=== PATIENT | female | born 1970 | race Caucasian/White ===

== ENCOUNTER → 2019-07-20 08:35 | Outpatient (BNVA) | payer OTHER, SELFPAY | PROVIDERS: Family Provider Nurse Practitioner; PCP Family Medicine; Visit Provider Family Medicine | DX: E06.3 Autoimmune thyroiditis (principal); M25.561 Pain in right knee; M25.562 Pain in left knee; G43.709 Chronic migraine without aura, not intractable, without status migrainosus; G89.29 Other chronic pain; Z13.6 Encounter for screening for cardiovascular disorders | CPT/HCPCS: 80053; 84439; 84443 ==

== ENCOUNTER → 2020-03-26 14:10 | Outpatient (BNVA) | payer OTHER, SELFPAY | PROVIDERS: Family Provider Nurse Practitioner; PCP Family Medicine; Visit Provider Obstetrics & Gynecology | DX: N81.4 Uterovaginal prolapse, unspecified (principal); Z12.4 Encounter for screening for malignant neoplasm of cervix | CPT/HCPCS: 88175 ==

== ENCOUNTER 2020-04-05 07:42 | Outpatient (CLI) | payer OTHER, SELFPAY ==
--- NOTE | 2020-04-05 07:47 | MM_ITS ---
WS: [id number] BILATERAL SCREENING DIGITAL MAMMOGRAM WITH CAD HISTORY: SCREENING COMPARISON: 02/02/2019 and 01/10/2018 Bilateral CC and MLO views submitted. Computer aided detection analyzed. Breast composition: The breasts are heterogeneously dense, which may obscure small masses. No suspici ous masses, microcalcifications or architectural distortion. Stable fibroglandular pattern MM/[place] [id number] IMPRESSION: BI-RADS: 2-Benign FOLLOW UP: 1 Year Follow-up
== END 2020-04-05 07:43 | disposition home or self-care (01) ==
LOC: RADSHAW 07:43
PROVIDERS: PCP Family Medicine; Visit Provider Obstetrics & Gynecology
DX: Z12.31 Encounter for screening mammogram for malignant neoplasm of breast (principal)
CPT/HCPCS: 77067

== ENCOUNTER → 2020-07-19 13:05 | Outpatient (BNVA) | payer OTHER, SELFPAY | PROVIDERS: PCP Family Medicine; Visit Provider Family Medicine | DX: L73.2 Hidradenitis suppurativa (principal); Z68.42 Body mass index [BMI] 45.0-49.9, adult | CPT/HCPCS: 80053; 83036 ==

== ENCOUNTER → 2020-08-16 13:14 | Outpatient (BNVA) | payer OTHER, SELFPAY | PROVIDERS: PCP Family Medicine; Visit Provider Family Medicine | DX: L73.2 Hidradenitis suppurativa (principal) | CPT/HCPCS: 80053 ==

== ENCOUNTER → 2020-10-24 08:30 | Outpatient (BNVA) | payer OTHER, SELFPAY | PROVIDERS: PCP Family Medicine; Visit Provider Obstetrics & Gynecology | DX: N81.4 Uterovaginal prolapse, unspecified (principal); N81.6 Rectocele; N81.89 Other female genital prolapse; Z20.822 Contact with and (suspected) exposure to COVID-19 | CPT/HCPCS: 87635 ==

== ENCOUNTER 2020-10-24 11:23 | Day surgery (SDC) | payer OTHER, SELFPAY ==
[2020-10-24 11:15] VITALS: BMI 46.7
[2020-10-24 11:34] LABS: Basophils % 0.4 %; Eosinophils # 0.1 10^3/uL (0.0-0.8); Eosinophils % 1.1 %; Hematocrit 42.9 % (37.0-47.0); Hemoglobin 13.6 g/dL (11.5-15.3); Lymphocytes # 1.8 10^3/uL (0.8-4.8); Lymphocytes % 23.7 %; Mean Corpuscular HGB Conc 31.7 g/dL (30.0-36.0); Mean Corpuscular Hemoglobin 26.7 pg (28.0-34.0); Mean Corpuscular Volume 84.1 fl (81-99); Mean Platelet Volume 11.1 fL (7.4-10.4); Monocytes # 0.4 10^3/uL (0.2-0.9); Monocytes % 5.9 %; Neutrophils # 5.14 10^3/uL (1.8-7.7); Neutrophils % 68.6 %; Nucleated Red Blood Cells % 0 %; Platelet Count 334 10^3/cmm (130-400); Red Cell Distribution Width 14.7 % (12.1-15.1); White Blood Count 7.5 10^3/uL (4.0-10.0)
[2020-10-24 12:07] LABS: Alanine Aminotransferase 19 U/L (0-33); Albumin Level 4.1 g/dL (3.5-5.2); Alkaline Phosphatase 106 IU/L (35-105); Anion Gap 11.9 (5-19); Aspartate Amino Transferase 22 U/L (0-32); Blood Urea Nitrogen 15 mg/dL (6-20); Calcium 8.8 mg/dL (8.5-10.5); Carbon Dioxide 26 mmol/L (22-29); Chloride 103 mmol/L (98-107); Globulin 3.8 g/dL (1.3-4.6); Glomerular Filtration Rate 130.6 mL/min (90-130); Glucose 98 mg/dL (65-115); Osmolality Calculated 285 mOsm/kg (285-295); Potassium 3.9 mmol/L (3.5-5.1); Sodium 137 mmol/L (136-145); Total Bilirubin 0.5 mg/dL (0.15-1.2); Total Protein 7.9 g/dL (6.6-8.7)
--- NOTE | 2020-10-24 16:51 | P.ANESASSM_ITS ---
Pre-Anesthetic Assessment Pre-Anesthetic Assessment: Height/Weight: Height 1.8 m Weight 151.953 kg Proposed Procedure: Operation Date: 10/29/20 10:15 Proposed Procedures p Laparoscopic Assist Vaginal Hysterectomy 24237 [id number] 78189 N81.4 N81.6(Not Applicable) - Toña Vitale MD s Laparoscopic Salpingo Oophorectomy(Not Applicable) - Toña Vitale MD s Posterior Repair perineorrhapy(Not Applicable) - Toña Vitale MD s Cystoscopy(Not Applicable) - Toña Vitale MD Was Beta Stephanie taken within 24 hours: N/A Was Clonidine taken within 24 hours: N/A Social: Social History: No alcohol and No tobacco Exam: Pre-Anes Outpt Exam: alert, oriented x 3, clear to auscultation bi laterally and regular rate & rhythm Airway: Submandibular: WNL Cervical ROM: WNL MP: 2 Dentition: Full GI: GI: GERD Metabolic: Metabolic: Morbid obesity and Thyroid Anesthetic Plan: ASA status: 3 Anesthesia: General Risk of > 500 ml blood loss (7ml/kg in children): No PFSH Anesthesia PFSH: Medical History Chronic migraine GERD (gastroesophageal reflux disease) Jean's disease History of nonmelanoma skin cancer Well woman exam with routine gynecological exam Surgical History H/O knee surgery History of cholecystectomy History of D&C History of endometrial ablation History of incision and drainage History of surgical removal of ganglion cyst Family History Mother Anesthesia complication Clotting disorder Hyperlipidemia Hypertension Pulmonary embolism Grandmother Stroke maternal Diabetes maternal Family/Other Clotting disorder maternal aunt and uncle Diabetes maternal aunt and uncle Thyroid condition paternal side of family Breast cancer, Onset Age: 56 maternal aunt Ovarian cancer maternal aunt, age onset late 40's Sister Diabetes Thyroid condition Denies family history of Colon cancer Heart disease Bleeding disorder Uterine cancer Social History Smoking and tobacco status: never smoked Second hand smoke exposure: No Alcohol intake: never Desire information about alcohol rehabilitation?: No Desire information about substance/drug rehabilitation?: No Data Anesthesia CBC & Chem 7: 10/24/20 11:23 10/24/20 11:23 Other Labs: Laboratory Results - last 48 hr 10/24/20 10/24/20 11:23 11:23 WBC 7.5 RBC 5.10 Hgb 13.6 Hct 42.9 MCV 84.1 MCH 26.7 L MCHC 31.7 RDW 14.7 Plt Count 334 MPV 11.1 H Neut % (Auto) 68.6 Lymph % (Auto) 23.7 Lucas % (Auto) 5.9 Eos % (Auto) 1.1 Baso % (Auto) 0.4 Neut # (Auto) 5.14 Lymph # (Auto) 1.8 Lucas # (Auto) 0.4 Eos # (Auto) 0.1 Baso # (Auto) 0.0 Nucleated RBC % (auto) 0 Nucleated RBCs # 0.0 Sodium 137 Potassium 3.9 Chloride 103 Carbon Dioxide 26 Anion Gap 11.9 BUN 15 Creatinine 0.5 GFR Calculation 130.6 H Glucose 98 Calculated Osmolality 285 Calcium 8.8 Total Bilirubin 0.5 AST 22 ALT 19 Alkaline Phosphatase 106 H Total Protein 7.9 Albumin 4.1 Globulin 3.8 Cardiac Studies: No Data to Display
== END 2020-10-24 13:00 | disposition home or self-care (01) ==
LOC: OR 02-10 12:03
PROVIDERS: PCP Family Medicine; Visit Provider Obstetrics & Gynecology
DX: N81.4 Uterovaginal prolapse, unspecified (principal); Z01.818 Encounter for other preprocedural examination
CPT/HCPCS: 80053; 85025; 87086

== ENCOUNTER → 2020-11-21 15:44 | Outpatient (BNVA) | payer OTHER, SELFPAY | PROVIDERS: PCP Family Medicine; Visit Provider Obstetrics & Gynecology | DX: N81.4 Uterovaginal prolapse, unspecified (principal) | CPT/HCPCS: 76830 ==

== ENCOUNTER → 2020-12-10 10:45 | Outpatient (BNVA) | payer OTHER, SELFPAY | PROVIDERS: PCP Family Medicine; Visit Provider Internal Medicine | DX: E06.3 Autoimmune thyroiditis (principal); E04.9 Nontoxic goiter, unspecified; E03.8 Other specified hypothyroidism; M79.10 Myalgia, unspecified site; Z79.84 Long term (current) use of oral hypoglycemic drugs | CPT/HCPCS: 99204 ==

== ENCOUNTER → 2020-12-16 10:20 | Outpatient (BNVA) | payer OTHER, SELFPAY | PROVIDERS: PCP Family Medicine; Visit Provider Obstetrics & Gynecology | DX: N81.4 Uterovaginal prolapse, unspecified (principal); R39.9 Unspecified symptoms and signs involving the genitourinary system | CPT/HCPCS: 81000; 87086 ==

== ENCOUNTER → 2021-01-01 16:54 | Outpatient (BNVA) | payer OTHER, SELFPAY | PROVIDERS: Visit Provider Obstetrics & Gynecology | DX: Z01.812 Encounter for preprocedural laboratory examination (principal); Z20.822 Contact with and (suspected) exposure to COVID-19 | CPT/HCPCS: 87635 ==

== ENCOUNTER 2021-01-07 14:30 | Observation (INO) | payer OTHER, SELFPAY ==
--- NOTE | 2021-01-01 12:31 | ANES.PREANE2 ---
Pre-Anesthetic Assessment Pre-Anesthetic Assessment: Height/Weight: Height 1.8 m Preop Diagnosis: prolapse Proposed Procedure: Operation Date: 01/07/21 10:50 Proposed Procedures p Laparoscopic Assist Vaginal Hysterectomy 24105 [id number] 19176 N81.4 N81.6(Not Applicable) - Toña Vitale MD s Salpingectomy(Bilateral) - Toña Vitale MD s Posterior Repair, Perinerorrhaphy(Not Applicable) - Toña Vitale MD s Cystoscopy(Not Applicable) - Toña Vitale MD Familial anesthetic complications: I tend to bite when I come out of it She bit the nurses when they tried to extubate her - reports no injury occured, so probable that she was simply biting the tube Social: Social History: No alcohol and No tobacco Exam: Pre-Anes Outpt Exam: alert, oriented x 3, clear to auscultation bilaterally and regular rate & rhythm Airway: MP: 3 Dentition: Other (missing) Pulmonary: Pulmonary: Asthma (exercise-induced asthma) Metabolic: Metabolic: DM (Pre-DM), Morbid obesity and Thyroid Anesthetic Plan: ASA status: 3 Anesthesia: General Risk of > 500 ml blood loss (7ml/kg in children): No PFSH Anesthesia PFSH: Medical History Chronic migraine Encounter for screening for cardiovascular disorders GERD (gastroesophageal reflux disease) Jean's disease History of nonmelanoma skin cancer 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 Ingrown toenail with infection Left arm numbness Left upper arm pain Morbid obesity with BMI of 45.0-49.9, adult Skin lesion of back Well woman exam with routine gynecological exam Surgical History H/O knee surgery History of cholecystectomy History of D&C History of endometrial ablation History of incision and drainage History of surgical removal of ganglion cyst Family History Mother Anesthesia complication Clotting disorder Hyperlipidemia Hypertension Pulmonary embolism Grandmother Stroke maternal Diabetes maternal Family/Other Clotting disorder maternal aunt and uncle Diabetes maternal aunt and uncle Thyroid condition paternal side of family Breast cancer, Onset Age: 56 maternal aunt Ovarian cancer maternal aunt, age onset late 40's Sister Diabetes Thyroid condition Denies family history of Colon cancer Heart disease Bleeding disorder Uterine cancer Data Anesthesia Cardiac Studies: No Data to Display
[2021-01-01 12:44] VITALS: BMI 46.7
[2021-01-07] VITALS (15 sets, daily range): BP systolic 123–163; BP diastolic 68–124; PULSE 80–103; RESP 14–21; TEMP 36.3–36.8; O2SAT 92–100
[2021-01-07] MEDS: scopolamine 1.5 Patch 1 PATCH TRANSDERMA (09:40)
[2021-01-07] MEDS: sodium chloride 0.9% 500 ML 999 ML IV (09:40)
[2021-01-07] MEDS: acetaminophen 1,000 MG/100 ML PIGGYBACK 400 MG IV (09:41)
[2021-01-07] MEDS: ketorolac 30 mg/mL INJ IVP ×3 (09:42→21:19)
[2021-01-07] MEDS: gabapentin 300 mg Capsule PO (09:42)
[2021-01-07] MEDS: phenazopyridine 100 mg Tablet 200 MG PO (09:42)
[2021-01-07] MEDS: CELEcoxib 200 mg Capsule 400 MG PO (09:42)
--- NOTE | 2021-01-07 10:11 | P.ANESUD_ITS ---
Pre-Anesthetic Update Pre-Anesthetic Assessment: Date of Surgery/Procedure: 01/07/21 Preop Malaika gnosis: uterine prolapse, rectocele, loose perineal body Proposed Procedure: Operation Date: 01/07/21 10:50 Proposed Procedures p Laparoscopic Assist Vaginal Hysterectomy 06352 [id number] 89595 N81.4 N81.6(Not Applicable) - Toña Vitale MD s Salpingectomy(Bilateral) - Toña Vitale MD s Posterior Repair, Perinerorrhaphy(Not Applicable) - Toña Vitale MD s Cystoscopy(Not Applicable) - Toña Vitale MD Any changes to Pre-Anesthetic Assessment?: No Last Intake: Intake Last Liquid Date 01/06/21 Last Liquid Time 22:00 Last Solid Date 01/06/21 Last Solid Time 15:00 Vitals: Temperature 98.3 F 01/07/21 09:14 Temperature Source Temporal Artery S can 01/07/21 09:14 Pulse Rate 81 01/07/21 09:14 Respiratory Rate 18 01/07/21 09:14 Blood Pressure 163/124 01/07/21 09:14 Blood Pressure Alva n 137 01/07/21 09:14 Pulse Oximetry 98 01/07/21 09:14 Oxygen Delivery Me thod 01/07/21 09:16 Exam: Pre-Anes Outpt Exam: alert, oriented x 3, clear to auscultation bilaterally and regular rate & rhythm Cardiac Studies: No Data to Display
[2021-01-07 10:43] LABS: Alanine Aminotransferase 20 U/L (0-33); Albumin Level 4.2 g/dL (3.5-5.2); Alkaline Phosphatase 100 IU/L (35-105); Anion Gap 16.1 (5-19); Aspartate Amino Transferase 19 U/L (0-32); Blood Urea Nitrogen 13 mg/dL (6-20); Calcium 8.7 mg/dL (8.5-10.5); Carbon Dioxide 20 mmol/L (22-29); Chloride 106 mmol/L (98-107); Globulin 3.3 g/dL (1.3-4.6); Glomerular Filtration Rate 130.6 mL/min (90-130); Glucose 98 mg/dL (65-115); Osmolality Calculated 286 mOsm/kg (285-295); Potassium 4.1 mmol/L (3.5-5.1); Sodium 138 mmol/L (136-145); Total Bilirubin 0.6 mg/dL (0.15-1.2); Total Protein 7.5 g/dL (6.6-8.7)
--- NOTE | 2021-01-07 10:59 | W.PM.OPSUD ---
Surgery/Procedure H&P Update DATE OF PROCEDURE: January 07, 2021 DATE H&P PERFORMED: 12/30/20 H&P UPDATE INFORMATION: I have reviewed H&P completed within last 30 days, I have examined patient prior to procedure and No changes to prior documentation CHANGES TO PREVIOUS DOCUMENTATION: I have seen and examined patient. There are not changes PREOP DIAGNOSIS: uterine prolapse, rectocele, loose perineal body PLANNED PROCEDURE: Operation Date: 01/07/21 10:50 Proposed Procedures p Laparoscopic Assist Vaginal Hysterectomy 18863 13768 97630 N81.4 N81.6(Not Applicable) - Toña Vitale MD s Salpingectomy(Bilateral) - Toña Vitale MD s Posterior Repair, Perinerorrhaphy(Not Applicable) - Toña Vitale MD s Cystoscopy(Not Applicable) - Toña Vitale MD Related Problem List Diagnoses (1) Morbid obesity with BMI of 45.0-49.9, adult: (2) Uterine prolapse: (3) Loss of perineal body, female: (4) Rectocele:
[2021-01-07] MEDS: vasopressin 20 unit/mL INJ (13:48)
--- NOTE | 2021-01-07 13:52 | SUR.OPER ---
Family Notified Of Patient's Status Via Phone.
--- NOTE | 2021-01-07 14:32 | P.OP_ITS ---
Operative Report Date of procedure: January 07, 2021 Pre-op Diagnosis: uterine prolapse, rectocele, loose perineal body Post-op diagnosis: same Post-op Findings: same Procedure Done: LAVH converted to TVH, BSO, posterior repair, perineorrhaphy, cystoscopy Specimens removed/disposition: uterus and bilateral fallopian tubes and ovaries to pathology Surgeon: Toña Vitale Anesthesia: General Estimated blood loss (mL): 100 IV fluids (mL): 800 Urine output (mL): 200 Complications: none Findings: The patient was not tolerating steep trenelenberg and in spite of having measures in place, was sliding on the table. The laparoscopy was abandoned due to not being able to position her adequately. Condition: stable Disposition: floor Procedure: The patient was taken to the operating room where general anesthesia was administered and found to be adequate. She was prepped and draped in the normal sterile fashion in the dorsal lithotomy position in [facility]. She had a pink, non-slip pad placed under her as well as a seatbelt across her chest. A Swartz catheter was placed. A weighted speculum was placed into the vagina and the anterior lip of the cervix was grasped with a single tooth tenaculum. The patient had a previous uterine ablation and the Zumi uterine manipulator could not be placed. A sponge stick was used, instead. The weighted speculum was removed. The gloves were changed and attention was turned to the abdomen. A 5 mm infraumbilical incision was made. Using a 5 mm port with the camera, the port was placed into the abdomen. The abdomen was insufflated. A left, low, lateral 5 mm port was placed under direct visualization from the camera. Anesthesia attempted to posision the patient in steep trendelenberg. She began sliding backward on the table. That was stopped. I was unable to see into the pelvis without trendelenberg. The trocars were removed and the abdomen desufflated. I proceeded with the vaginal portion of the procedure. The weighted speculum was placed into the vagina. The zumi manipulator was removed. The single tooth tenaculum was removed and replaced with the wil's tenaculum. 10 mL of dilute Pitressin was injected at the vesicovaginal junction. A circumferential incision was made at the vesicovaginal junction and the vaginal mucosa reflected cephalad. The posterior peritoneum was entered sharply with the Metzenbaum scissors and the long weighted speculum replaced. Using the Pipo clamps the uterosacral ligaments were clamped cut and suture- ligated. The anterior peritoneum was entered sharply with the metzenbaum scissors. Then sequentially the uterine arteries and cardinal ligaments were clamped cut and suture-ligated. A single-tooth tenaculum was used to deliver the uterus. The remaining segement of the utero-ovarian ligaments were clamped. Using a cuauhtemoc clamp, the Heany clamp was placed lateral to the first clamp and superior to the tube and ovary. The infundibulopelvic ligament was cut and suture-ligated bilaterally and the specimens removed. There was good hemostasis with only mild bleeding from the cuff. The peritoneum was closed with a pursestring using 2-0 Vicryl. The vaginal cuff was closed with 0 Vicryl in a running locked pattern incorporating the uterosacral ligaments into the lateral aspects of the vaginal cuff. Attention was turned to the posterior repair. The vaginal cuff was identified and an allis clamp was placed in the midline of the vaginal mucosa, approximately 2 cm posterior to the cuff. A second allis clamp was placed in the midline of the vaginal mucosa, approximately 3 cm from the introitus. An incision was made in the midline from clamp to clamp. The vaginal mucosa was clamped laterally and the rectocele dissected off of the rectovaginal fascia. The rectocele was packed away and the rectovaginal fascia brought together in the midline with figure of 8 interrupted sutures of O-Vicryl. The packing was removed and the excess vaginal tissue trimmed. The incision was repaired with 0-Vicryl in a running fashion. Attention was then turned to the perineorrhphy. Allis clamps were placed on the posterior fourchette. A 3 cm wedge of the fourchette was removed. This was r epaired in the usual fashion with O-vicryl. The Swartz catheter was removed and the cystoscope advanced into the bladder. The patient was given pyridium in preop and bilateral spill was noted. There were no injuries or deficits noted in the bladder. The cystoscope was removed and the Swartz was replaced. Vaginal packing was placed for good hemostasis. The patient tolerated the procedure well. Sponge lap and needle counts were correct x3. She was taken to the recovery room in stable condition.
--- NOTE | 2021-01-07 15:03 | ANE.PACU2 ---
Inpatient post-anesthesia follow up: Airway intact: Yes Vital signs: Temperature 97.6 F Pulse Rate 86 Respiratory Rate 18 Blood Pressure 134/84 Pulse Oximetry 95 Oxygen Delivery Me thod Room Air Oxygen Flow Rate 8 Fraction of Inspir ed Oxygen Hydration adequate: Yes Nausea and vomiting: No Pain level: 3 Mental status: Baseline
[2021-01-07] MEDS: HYDROmorphone 1 mg/mL INJ 1 mL 1.5 MG IVP ×2 (16:39→23:05)
[2021-01-07] MEDS: pantoprazole DR 40 mg Tablet PO (21:19)
[2021-01-07] MEDS: topiramate 100 mg Tablet PO (21:26)
[2021-01-07] MEDS: cetirizine 10 mg Tablet PO (21:26)
[2021-01-07] MEDS: lactated ringers 1,000 ML 125 ML IV (23:04)
[2021-01-08 01:31] VITALS: O2SAT 95
[2021-01-08] MEDS: ketorolac 30 mg/mL INJ IVP (02:57)
[2021-01-08 03:03] VITALS: BP 123/75; PULSE 92; RESP 16; TEMP 36.8; O2SAT 96
[2021-01-08 04:21] VITALS: BP 123/74; PULSE 70; RESP 16; TEMP 36.7; O2SAT 98
[2021-01-08] MEDS: HYDROcodone-acetaminophen 5-325 mg Tablet PO (04:29)
[2021-01-08] MEDS: levothyroxine 175 mcg Tablet PO (05:48)
[2021-01-08 05:53] LABS: Hematocrit 37.5 % (37.0-47.0); Hemoglobin 11.9 g/dL (11.5-15.3); Mean Corpuscular HGB Conc 31.7 g/dL (30.0-36.0); Mean Corpuscular Hemoglobin 27.5 pg (28.0-34.0); Mean Corpuscular Volume 86.6 fl (81-99); Mean Platelet Volume 11.5 fL (7.4-10.4); Platelet Count 281 10^3/cmm (130-400); Red Blood Count 4.33 10^6/uL (4.1-5.3); Red Cell Distribution Width 13.8 % (12.1-15.1); White Blood Count 15.2 10^3/uL (4.0-10.0)
[2021-01-08] MEDS: metformin XR 500 MG Tablet PO (08:47)
[2021-01-08] MEDS: docusate sodium 100 mg Capsule PO (08:48)
--- NOTE | 2021-01-08 09:53 | P.DS_ITS ---
Discharge Providers Date of Admission: 01/07/21 14:30 Date of Discharge: January 08, 2021 Attending Provider at Admission: Toña Vitale MD Attending Provider at Discharge: Toña Vitale MD Primary Care Provider: Rocael Valdez RN Diagnoses at Discharge Discharge Diagnosis (1) Morbid obesity with BMI of 45.0-49.9, adult: Status: Acute (2) Uterine prolapse: Status: Acute (3) Loss of perineal body, female: Status: Acute (4) Rectocele: Status: Acute Reason for Visit Reason for Visit: Uterine prolapse, Rectocele Hospital Course Hospital Course The patient was admitted for surgery. she did well postoperatively and was ready for discharge on day #1 Physical Exam Narrative: EXAM NARRATIVE: The patient is doing well this morning. she has had her packing and catheter removed. She is able to void without problems. She is ambulating and tolerating a regular diet. Her pain is well controlled on oral pain medication. Const: COMMON NORMALS: no acute distress, patient oriented x3, no limitations, alert and well nourished GENERAL APPEARANCE: cooperative, comfortable, well kempt and well developed ORIENTATION/CONSCIOUSNESS: Yes awake, Yes oriented to person, Yes oriented to place and Yes oriented to time Resp: COMMON NORMALS: normal respiratory effort EFFORT & INSPECTION: Yes able to speak in complete sentences GI: COMMON NORMALS: Soft to palpation and non-tender PALPATION: Yes Soft to palpation : COMMON NORMALS: Yes normal external appearance and Yes normal appearance of the vagina Extremity: COMMON NORMALS: no calf tenderness Neuro: COMMON NORMALS: patient oriented x3 SENSORIUM/ORIENTATION: Yes alert, Yes oriented to person, Yes oriented to place and Yes oriented to time Psych: APPEARANCE: Yes well kempt Urinary Catheter Management^: F: Cath Placed During This Visit: yes, but has since been removed by the nurse Reason for Continuing Indwelling Catheter: Required Immobilization for Trauma or Surgery or Anesthesia Urinary Catheter Date of Insertion: 01/07/21 Urinary Catheter Time of Insertion: 11:25 Date Urinary Catheter Removed: 01/08/21 Time Urinary Catheter Discontinued: 06:05 Discharge Data Data Completed and Pending: Pending at discharge Category Date Time Status ES surgery / GI i mages Routine Exams 01/07/21 10:50 Ordered Comprehensive Met abolic Panel ASHLEY FABIAN Lab 01/08/21 04:00 Ordered Retype for Patiet s ABO/Rh Routine Lab 01/07/21 11:15 Ordered Pathology: Surgic al [PTH] Routine Pth 01/07/21 14:41 Received Labs from last 24 hours 01/08/21 01/07/21 01/07/21 05:30 09:40 09:40 WBC 15.2 H RBC 4.33 Hgb 11.9 Hct 37.5 MCV 86.6 MCH 27.5 L MCHC 31.7 RDW 13.8 Plt Count 281 MPV 11.5 H Sodium 138 Potassium 4.1 Chloride 106 Carbon Dioxide 20 L Anion Gap 16.1 BUN 13 Creatinine 0.5 GFR Calculation 130.6 H Glucose 98 Calculated Osmolal ity 286 Calcium 8.7 Total Bilirubin 0.6 AST 19 ALT 20 Alkaline Phosphata se 100 Total Protein 7.5 Albumin 4.2 Globulin 3.3 Urine HCG, Qual Blood Type A Positive Rho(D) Type Positive Antibody Screen Negative 01/07/21 09:20 WBC RBC Hgb Hct MCV MCH MCHC RDW Plt Count MPV Sodium Potassium Chloride Carbon Dioxide Anion Gap BUN Creatinine GFR Calculation Glucose Calculated Osmolal ity Calcium Total Bilirubin AST ALT Alkaline Phosphata se Total Protein Albumin Globulin Urine HCG, Qual Cancelled Blood Type Rho(D) Type Antibody Screen Vitals: Last Vital Signs Temp 98.1 F 01/08/21 04:21 Pulse 70 01/08/21 04:21 Resp 16 01/08/21 04:21 BP 123/74 01/08/21 04:21 Pulse Ox 98 01/08/21 04:21 Discharge Plan Discharge Patient Disposition: Home Condition: Stable Prescriptions: New docusate sodium 100 mg Capsule 100 mg PO BID Qty: 60 RF: 0 ibuprofen 800 mg Tablet 800 mg PO Q8H Qty: 30 RF: 0 hydrocodone-acetaminophen 5-325 mg Tablet 1 tab PO Q4H PRN (Reason: Moderate To Severe Pain) Qty: 30 RF: 0 Continued omeprazole 20 mg capsule,delayed release(DR/EC) 20 mg PO DAILY RF: 0 Zyrtec 10 mg capsule 10 mg PO DAILY RF: 0 triamcinolone acetonide 0.1 % ointment 1 applic topical BID Qty: 80 RF: 1 clindamycin phosphate 1 % gel 1 applic topical BID PRN (Reason: rash) RF: 0 metformin 500 mg tablet extended release 24 hr 500 mg PO .DAILY WITH FOOD Qty: 90 RF: 1 topiramate [Topamax] 100 mg tablet 100 mg PO DAILY Qty: 90 RF: 3 levothyroxine [Synthroid] 200 mcg tablet 200 mcg PO .every other day Qty: 90 RF: 0 levothyroxine [Synthroid] 175 mcg tablet 175 mcg PO .every other day Qty: 90 RF: 0 Discharge Orders: Discharge Order (Routine); Ordered 01/08/21 Ordered By: Toña Vitale Patient Instructions: Opioid Safety Discharge Attestations Time Spent in Discharge Care*: less than 30 min Quality Metrics Clinical Quality Measures During this hospital stay, did patient experience: None Coding Level of Care Code Acute [facility] note Diagnoses Morbid obesity with BMI of 45.0-49.9, adult E66.01; Z68.42 Uterine prolapse N81.4 Loss of perineal body, female N81.89 Rectocele N81.6
[2021-01-08 10:52] VITALS: BP 147/78; PULSE 81; RESP 20; TEMP 36.8
== END 2021-01-08 11:00 | disposition home or self-care (01) ==
LOC: OBGYN 14:30
PROVIDERS: Admitting Provider Obstetrics & Gynecology; Visit Provider Obstetrics & Gynecology
PROC: (CPT 58700; 2021-01-07 10:40)
PROC: (CPT 57250; 2021-01-07 10:40)
PROC: 0TJB8ZZ Inspection of Bladder, Via Natural or Artificial Opening Endoscopic (ICD-10-PCS; CPT 52000; 2021-01-07 10:40)
PROC: 0UT9FZZ Resection of Uterus, Via Natural or Artificial Opening With Percutaneous Endoscopic Assistance (ICD-10-PCS; CPT 57250; 2021-01-07 10:40)
PROC: (CPT 57250; 2021-01-07 10:40)
DX: N81.4 Uterovaginal prolapse, unspecified (principal); N81.6 Rectocele; N81.89 Other female genital prolapse; E66.01 Morbid (severe) obesity due to excess calories; Z68.42 Body mass index [BMI] 45.0-49.9, adult; K21.9 Gastro-esophageal reflux disease without esophagitis; E06.3 Autoimmune thyroiditis
CPT/HCPCS: 57250; 58262; 36415; 80053; 81025; 85027; 86850; 86900; 88305; G0378; J1100; J1170; J1885; J2250; J2405; J2704; J2710; J3010; J3370; J3490; J7040

== ENCOUNTER → 2021-01-15 09:54 | Outpatient (BNVA) | payer OTHER, SELFPAY | PROVIDERS: Visit Provider Podiatrist Foot & Ankle Surgery | DX: M79.672 Pain in left foot (principal); M77.32 Calcaneal spur, left foot | CPT/HCPCS: 73630 ==

== ENCOUNTER 2021-01-15 11:12 | Outpatient (CLI) | payer OTHER, SELFPAY | END 2021-01-15 11:13 | disposition home or self-care (01) | LOC: SPT 11:13 | PROVIDERS: PCP Family Medicine; Visit Provider Podiatrist Foot & Ankle Surgery | DX: Z46.89 Encounter for fitting and adjustment of other specified devices (principal); L73.2 Hidradenitis suppurativa; E06.3 Autoimmune thyroiditis | CPT/HCPCS: 80053; 82306; 83036; 84439; 84443; 90686; L4397 ==

== ENCOUNTER 2021-01-17 10:24 | Outpatient (RCR) | payer OTHER, SELFPAY | END 2021-02-07 23:59 | disposition home or self-care (01) | LOC: SPT 10:24 | PROVIDERS: PCP Family Medicine; Referring Provider Family Medicine Adult Medicine; Visit Provider Family Medicine Adult Medicine | DX: M79.622 Pain in left upper arm (principal); R20.0 Anesthesia of skin | CPT/HCPCS: 97110; 97162 ==

== ENCOUNTER 2021-02-05 07:21 | Outpatient (CLI) | payer OTHER, SELFPAY ==
--- NOTE | 2021-02-05 07:15 | US_ITS ---
WS: [id number] ULTRASOUND THYROID TECHNIQUE: Ultrasound of the thyroid. CLINICAL INFORMATION: goiter changes COMPARISON: and October 11, 2014 FINDINGS: Thyroid: Enlarged Heterogeneous thyroid echotexture bilaterally. Right thyroid lobe: 5.4 cm x 2.2 cm x 1.9 cm Left thyroid lobe: 4.9 cm x 1.6 cm x 1.4 cm. Echogenic nodule left mid thyroid measuring 6.2 x 6.3 x 7.0 mm Isthmus: 0.2 mm. Cervical lymphadenopathy: None. US/US thyroid [id number] IMPRESSION: 1. Enlarged heterogeneous thyroid echotexture bilaterally. 2. Echogenic nodule left mid thyroid measuring 6.2 x 6.3 x 7.0 mm. This is sta ble compared to 2017 3. No right thyroid nodules.
== END 2021-02-05 07:22 | disposition home or self-care (01) ==
LOC: RAD 07:24
PROVIDERS: PCP Family Medicine; Visit Provider Internal Medicine
DX: E06.3 Autoimmune thyroiditis (principal); E04.1 Nontoxic single thyroid nodule
CPT/HCPCS: 76536

== ENCOUNTER 2021-02-08 06:00 | Outpatient (RCR) | payer OTHER, SELFPAY | END 2021-03-10 23:59 | disposition home or self-care (01) | LOC: SPT 06:00 | PROVIDERS: PCP Family Medicine; Referring Provider Family Medicine Adult Medicine; Visit Provider Family Medicine Adult Medicine | DX: M79.622 Pain in left upper arm (principal); R20.0 Anesthesia of skin | CPT/HCPCS: 97110 ==

== ENCOUNTER 2021-03-11 06:00 | Outpatient (RCR) | payer OTHER, SELFPAY | END 2021-04-07 23:59 | disposition home or self-care (01) | LOC: SPT 06:00 | PROVIDERS: PCP Family Medicine; Referring Provider Family Medicine Adult Medicine; Visit Provider Family Medicine Adult Medicine | DX: M79.622 Pain in left upper arm (principal); R20.0 Anesthesia of skin | CPT/HCPCS: 97110 ==

== ENCOUNTER 2021-09-18 08:11 | Outpatient (CLI) | payer OTHER, SELFPAY ==
[2021-09-18 09:44] LABS: Free T4 Free Thyroxine 0.78 ng/dL (0.82-1.77); Thyroid Stimulating Hormone 16.26 uIU/mL (0.27-4.20)
== END 2021-09-18 08:12 | disposition home or self-care (01) ==
LOC: LAB 08:13
PROVIDERS: PCP Family Medicine; Visit Provider Family Medicine
DX: E03.8 Other specified hypothyroidism (principal); E06.3 Autoimmune thyroiditis
CPT/HCPCS: 84439; 84443

== ENCOUNTER 2021-11-13 12:34 | Outpatient (CLI) | payer OTHER, SELFPAY ==
--- NOTE | 2021-11-13 13:03 | MM_ITS ---
WS: [id number] BILATERAL 3D TOMOSYNTHESIS DIGITAL DIAGNOSTIC MAMMOGRAPHY WITH CAD CLINICAL INFORMATION: N63.0 Unspecified lump in unspecified breast COMPARISON: 6 month follow-up. Outside bilateral ultrasound November 12, 2020, MRI breast report Septe mber 2020, and prior mammogram April 05, 2020. TECHNIQUE: Bilateral CC, MLO, and ML views. FINDINGS: The breasts are composed of heterogeneous fibroglandular density, which can limit the detection of sm all underlying mass lesions. Stable dense parenchymal tissue upper outer breasts bilaterally RIGHT gr eater than LEFT. No suspicious focal mass, asymmetry, calcifications, or architectural distortion. Ultrasound describe d below. ULTRASOUND BREAST BILATERAL TECHNIQUE: Ultrasound bilateral breast focused area of concern. CLINICAL INFORMATION: N63.0 Unspecified lump in unspecified breast FINDINGS: RIGHT BREAST: Incidental cyst is identified at the RIGHT breast 11:00 position with through transmiss ion. Simple cyst measures 6.1 x 7.7 x 4.5 mm appears similar to the prior outside examination. No oth er abnormalities identified in the RIGHT breast. No suspicious RIGHT axillary lymph nodes. LEFT BREAST: LEFT axilla was examined. Normal-appearing LEFT axillary lymph node with preserved fatty hilum has a benign appearance measuring 1.7 x 1.5 x 0.8 cm. No suspicious LEFT axillary lymph nodes. MM/[place] [id number] IMPRESSION: BI-RADS: 2-Benign FOLLOW UP: 1 Year Follow-up Recommend return to annual screening mammography.
== END 2021-11-13 12:35 | disposition home or self-care (01) ==
LOC: RAD 12:34
PROVIDERS: PCP Family Medicine; Visit Provider Obstetrics & Gynecology
DX: N63.0 Unspecified lump in unspecified breast (principal)
CPT/HCPCS: 76641; 77062

== ENCOUNTER → 2022-03-31 16:53 | Outpatient (BNVA) | payer OTHER, SELFPAY | PROVIDERS: PCP Family Medicine; Visit Provider Nurse Practitioner | DX: J02.9 Acute pharyngitis, unspecified (principal); J30.9 Allergic rhinitis, unspecified | CPT/HCPCS: 87071; 87880 ==

== ENCOUNTER 2023-04-02 13:42 | Outpatient (CLI) | payer OTHER, SELFPAY ==
--- NOTE | 2023-04-02 14:00 | MM_ITS ---
WS: [id number] BILATERAL 3D TOMOSYNTHESIS DIGITAL SCREENING MAMMOGRAPHY WITH CAD CLINICAL INFORMATION: screening HISTORY: Screening mammogram. No current complaints. COMPARISON: 2021 TECHNIQUE: Bilateral CC and MLO views. FINDINGS: The breasts are composed of heterogeneous fibroglandular density tissue, which can limit the detectio n of small underlying mass lesions. No suspicious mass, asymmetry, calcifications, or architectural d istortion. No evidence of malignancy. A few tiny incidental punctate calcifications. IMPRESSION: MM/[place] [id number] BI-RADS: 2-Benign FOLLOW UP: 1 Year Follow-up Recommend return to annual screening mammography.
== END 2023-04-02 13:43 | disposition home or self-care (01) ==
LOC: RAD 13:42
PROVIDERS: PCP Family Medicine; Visit Provider Family Medicine
DX: Z12.31 Encounter for screening mammogram for malignant neoplasm of breast (principal); R92.323 Mammographic fibroglandular density, bilateral breasts
CPT/HCPCS: 77063; 77067

== ENCOUNTER 2024-07-28 07:44 | Outpatient (CLI) | payer OTHER, SELFPAY ==
--- NOTE | 2024-07-28 08:00 | MM_ITS ---
WS: [id number] BILATERAL SCREENING DIGITAL TOMOSYNTHESIS MAMMOGRAM WITH CAD HISTORY: Z12.31 - Encounter for screening mammogram for malignant ... COMPARISON: 04/02/2023, 11/13/2021 Bilateral CC and MLO views with tomosynthesis and synthetic mammography submitted. Computer aided detection analyzed. Breast composition: The breasts are heterogeneously dense, which may obscure small masses. No suspicious masses, microcalcifications or architectural distortion. There are a few benign scattered calcifications in each breast. MM/MM scr tomosynthesis [id number] IMPRESSION: BI-RADS: 2 - Benign FOLLOW UP: 1 Year Follow-up
== END 2024-07-28 07:45 | disposition home or self-care (01) ==
LOC: RAD 07:45
PROVIDERS: PCP Nurse Practitioner; Visit Provider Nurse Practitioner
DX: Z12.31 Encounter for screening mammogram for malignant neoplasm of breast (principal)
CPT/HCPCS: 77063; 77067

== ENCOUNTER 2024-08-22 18:12 | Emergency (ER) | payer OTHER, SELFPAY ==
--- NOTE | 2024-08-22 18:17 | ECG_ITS ---
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 Measurements Intervals [place] Rate: 96 P: 50 ME: 159 QRS: 12 QRSD: 113 T: 49 QT: 358 QTc: 453 Interpretive Statements SINUS RHYTHM POSSIBLE LEFT ATRIAL ENLARGEMENT [-0.1mV P-WAVE IN V1/V2] INCOMPLETE RIGHT BUNDLE BRANCH BLOCK [90+ ms QRS DURATION, TERMINAL R IN V1/V2, 40+ ms S IN I/aVL/V4/V5/V6] No previous ECG available for comparison Electronically Signed On 08-22-2024 18:37:00 CDT by Nakul Lopez M.D. [email or web address]
[2024-08-22 18:18] VITALS: BP 136/90; PULSE 91; RESP 16; TEMP 36.8; O2SAT 96
--- OUTSIDE RECORDS SUMMARY | 2024-08-22 18:18 | XMS_ITS | Clinical Summary ---
Author Organization [facility] Address [address] [place] [address] Attn: [place] [address] Care Team Providers Care Jewel Bearing Driller Name Role Phone Juan Hunt NP Primary Care Provider Allergies Active Allergy Reactions Criticality Noted Date Comments Aspirin Rash Low 05/11/2016 Doxycycline Rash Low 05/11/2016 Penicillins Rash Low 05/11/2016 Medications levothyroxine 200 mcg tablet Take 1 Tablet (200 mcg) by mouth every other day. 45 Tablet 3 9 Active levothyroxine 175 mcg tablet Take 1 Tablet (175 mcg) by mouth every other day. 45 Tablet 3 9 Active omeprazole (PriLOSEC) 20 mg Capsule, Delayed Release(E.C.) Take 20 mg by mouth daily. 8 Active OTHER Provider please include Medication name, dose, route and frequency . 8 Active topiramate (TOPAMAX) 100 mg tablet Take 100 mg by mouth daily. 8 Active hyaluronate sodium (HYALURONIC ACID, SODIUM, ORAL) Take 100 mg by mouth daily. 8 Active OTHER Calcium with magnesium daily . 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 Primary hypothyroidism 05/11/2016 Family History Medical History Relation Name Comments Ovarian Cancer Maternal Aunt 1 Breast Cancer Maternal Aunt 2 Cancer Maternal Grandmother Diabetes Maternal Grandmother Other Maternal Grandmother Thyroid Disease Maternal Grandmother Hypertension Mother Colon Cancer Neg Hx Relation Name Status Comments Maternal Aunt 1 Alive Maternal Aunt 2 Maternal Grandmother Mother Social History Tobacco Use Types Packs/Day Years Used Date Smoking Tobacco: Never Smokeless Tobacco: Never Alcohol Use Standard Drinks/Week Comments No 0 (1 standard drink = 0.6 oz pur e alcohol) Comments Unknown Sex and Gender Information Value Date Recorded Sex Assigned at Female 06/25/2023 11:12 AM CDT Legal Sex Female 2:54 AM RUBBER CURER Gender Identity Female 06/25/2023 11:12 AM CDT Sexual Orientation Straight 06/25/2023 11 :12 AM CDT Last Filed Vital Signs Vital Sign Reading Time Taken Comments Blood Pressure 128/80 01/16/2019 2:36 PM RUBBER CURER Pulse 76 01/16/2019 1:11 PM RUBBER CURER Temperature - - Respiratory Rate - - Oxygen Saturation - - Inhaled Oxygen Concentration - - Weight 146.7 kg (323 lb 6.4 oz) 01/16/2019 2:36 PM RUBBER CURER Height 180.3 cm (5' 11 ) 01/16/2019 2:36 PM RUBBER CURER Body Mass Index 45.11 01/16/2019 2:36 PM RUBBER CURER Plan of Treatment Health Maintenance Due Date Last Done Comments DTAP/TDAP/TD VACCINES (1 - Tdap) 1989 HEPATITIS B VACCINES (1 of 3 - 19+ 3-dose series) 10/09 COLORECTAL SCREENING 10/22/2015 Colorectal Cancer Screening 10/22/2015 FIT-DNA Q 3 years 10/22/2015 FIT/FOBT Q 1 year 10/22/2015 Flex Sig/CT Colonography Q 5 years 10/22/2015 BREAST CANCER SCREENING 08/29/2016 08/30/2015 ZOSTER VACCINE (1 of 2) 2020 PAP SMEAR 01/14/2021 01/14/2018 CERVICAL CANCER SCREENING 01/14/2023 HPV/Cotest (21-29) 01/14/2023 01/14/2018 HPV/Cotest (30-65) 01/14/2023 01/14/2018 INFLUENZA VACCINE (#1) 2024 12/23/2022 Procedures Procedure Name Priority Date/Time Associated Diagnosis Comments CERV/VAG CYTO AGE BASED SCREEN PAP Routine 01/14/2018 4:06 PM RUBBER CURER MAMMO SCREEN BILAT W OR WO CAD 08/30/2015 12:00 AM CDT from Last 3 Months or Most Recently Relevant to Health Maintenance Results * CERV/VAG CYTO AGE BASED SCREEN PAP (01/14/2018 4:06 PM RUBBER CURER) COMMENT (PAP): SEE COMMENT 8 1:52 PM RUBBER CURER [facility] Comment: This order for age-based cervical cancer and STI screening follows ACOG guidelines(PB 168, 140, ADE353). See individual assays for performing site location. CLINICAL INFORMATION Routine exam 01/20/2018 1:52 PM RUBBER CURER [facility] LAST MENSTRUAL PERIOD INFORMATION NOT PROVIDED 01/20/2018 1:52 PM RUBBER CURER [facility] PREV PAP: INFORMATION NOT PROVIDED 01/20/2018 1:52 PM RUBBER CURER [facility] PREV BX: INFORMATION NOT PROVIDED 01/20/2018 1:52 PM RUBBER CURER [facility] SOURCE Endocervix 01/20/2018 1:52 PM RUBBER CURER [facility] ADEQUACY: SEE COMMENT 01/20/2018 1:52 PM RUBBER CURER [facility] Comment: Satisfactory for evaluation. Endocervical/transformation zone component present. Age and/or menstrual status not provided PAP INTERP Negative for intraepithelial lesion or malignancy. 01/20/2018 1:52 PM RUBBER CURER [facility] COMMENT This Pap test has been evaluated with computer assisted technology. 01/20/2018 1:52 PM RUBBER CURER [facility] JOB FOREMAN: SEE COMMENT 2017 1:52 PM RUBBER CURER [facility] Comment: MVB, CT(ASCP) CT screening location: [place] [address] [place] [address] EXPLANATORY NOTE SEE COMMENT 018 1:52 PM RUBBER CURER [facility] Comment: EXPLANATORY NOTE: The Pap is a screening test for cervical cancer. It is not a diagnostic test and is subject to false negative and false positive results. It is most reliable when a satisfactory sample, regularly obtained, is submitted with relevant clinical findings and history, and when the Pap result is evaluated along with historic and current clinical information. HPV E6/E7 Not Detected Not Detected 01/20/2018 1:52 PM RUBBER CURER [facility] Comment: This test was performed using the APTIMA HPV Assay ([employer] This assay detects E6/E7 viral messenger RNA (mRNA) from 14 high-risk HPV types (16,18,31,33,35,39,45,51,52,56,58,59,66,68). The analytical performance characteristics of this assay have been determined by [employer]. The modifications have not been cleared or approved by the FDA. This assay has been validated pursuant to the CLIA regulations and is used for clinical purposes. Genital SWAB OF ENDOCERVIX / Unknown Collection / Unknown 01/14/2018 4:06 PM RUBBER CURER 01/18/2018 9:23 AM RUBBER CURER Narrative [facility] - 01/20/2018 1:52 PM RUBBER CURER Performing Organization Information: Site ID: [id number] [facility] Address: [address] [place] [address] Director: Conner Quijano D.O., MPH Site ID: [id number] [facility] Address: [address] [place] [address] Director: Jared Carrasco Daphne Greene [facility] PATHOLOGY/CYTOLOGY ORDERABLES Final Result [facility] * MAMMO SCREEN BILAT W OR WO CAD (08/30/2015 12:00 AM CDT) Anatomical Region Laterality Modality Breast Bilateral Mammography [facility] MAMMO ORDERABLES Final Result from Last 3 Months or Most Recently Relevant to Health Maintenance Insurance [employer] CHOICE POS II Care Teams Jewel Bearing Driller Relationship Specialty Start Date End Date Juan Hunt NP [address] [place] [phone] PCP - General NURSE PRACTITIONER 01/14/18
--- OUTSIDE RECORDS SUMMARY | 2024-08-22 18:18 | XMS_ITS | Encounter Summary ---
Author Organization [facility] Address [address] [place] [address] Care Team Providers Care Death Claim Examiner Name Role Phone Juan Hunt NP Primary Care Provider [phone] Encounter Details Date Type Department Care Team (Latest Contact Info) Description 08/24/2005 Outpatient Historical [facility] Medicine- [place] [address] [place] [address] Brianna Hill NP [address] [facility] [place] [address] Esophageal Reflux (Primary Dx); Unspecified Adjustment Reaction; Routine Gynecological Examination Social History Tobacco Use Types Packs/Day Years Used Date Smoking Tobacco: Never Assessed Comments Unknown Sex and Gender Information Value Date Recorded Sex Assigned at Not on file Legal Sex Female 4:31 AM TONG SETTER Gender Identity Not on file Sexual Orientation Not on file documented as of this encounter Plan of Treatment Not on file documented as of this encounter Visit Diagnoses Diagnosis Esophageal reflux- Primary Unspecified adjustment reaction Routine gynecological examination documented in this encounter Care Teams Death Claim Examiner Relationship Specialty Start Date End Date Juan Hnut NP [address] [place] [phone] PCP - General NURSE PRACTITIONER 01/14/18 documented as of this encounter
--- OUTSIDE RECORDS SUMMARY | 2024-08-22 18:18 | XMS_ITS | Encounter Summary ---
Author Organization [facility] Address [address] [place] [address] Care Team Providers Care Meteorological Observer Name Role Phone Juan Hunt SOLID WASTE ANALYST Primary Care Provider [phone] Encounter Details Date Type Department Care Team (Late st Contact Info) Description 01/12/2001 Outpatient Historical [facility] Krysta, Kirit Cordero MD [address] [phone] DIS OF GALLBLADDER NEC (Primary Dx) Social History Tobacco Use Types Packs/Day Years Used Date Smoking Tobacco: Never Assessed Comments Unknown Sex and Gender Information Value Date Recorded Sex Assigned at Not on file Legal Sex Female 4:31 AM FIRE HOSE CURER Gender Identity Not on file Sexual Orientation Not on file documented as of this encounter Plan of Treatment Not on file documented as of this encounter Visit Diagnoses Diagnosis Other specified disorder of gallbladder- Primary documented in this encounter Care Teams Meteorological Observer Relationship Specialty Start Date End Date Juan Hunt NP [address] [place] [phone] PCP - General NURSE PRACTITIONER 01/14/18 documented as of this encounter
--- OUTSIDE RECORDS SUMMARY | 2024-08-22 18:18 | XMS_ITS | Encounter Summary ---
Author Organization [facility] Address [address] [place] [address] Care Team Providers Care Powder Compounder Name Role Phone Juan Hunt PORTRAIT ARTIST Primary Care Provider Encounter Details Date Type Department Care Team (Late st Contact Info) Description 08/25/2005 Outpatient Historical [facility] Medicine- [place] [address] [place] [address] Brianna Hill NP [address] [facility] [place] [phone] Social History Tobacco Use Types Packs/Day Years Used Date Smoking Tobacco: Never Assessed Comments Unknown Sex and Gender Information Value Date Recorded Sex Assigned at Not on file Legal Sex Female 4:31 AM FEED MANAGER Gender Identity Not on file Sexual Orientation Not on file documented as of this encounter Plan of Treatment Not on file documented as of this encounter Visit Diagnoses Not on filedocumented in this encounter Care Teams Powder Compounder Relationship Specialty Start Date End Date Juan Hunt NP [address] [place] [phone] PCP - General NURSE PRACTITIONER 01/14/18 documented as of this encounter
--- OUTSIDE RECORDS SUMMARY | 2024-08-22 18:18 | XMS_ITS | Encounter Summary ---
Author Organization [facility] Address [address] [place] [address] Care Team Providers Care Novelties Sales Representative Name Role Phone Juan Hunt MANAGER RELIABILITY Primary Care Provider Encounter Details Date Type Department Care Team (Late st Contact Info) Description 02/16/2001 Outpatient Historical [facility] Krysta, Kirit Cordero MD [address] [phone] SURGERY FOLLOWUP, UNSPEC (Primary Dx) Social History Tobacco Use Types Packs/Day Years Used Date Smoking Tobacco: Never Assessed Comments Unknown Sex and Gender Information Value Date Recorded Sex Assigned at Not on file Legal Sex Female 4:31 AM MOLD DUMPER Gender Identity Not on file Sexual Orientation Not on file documented as of this encounter Plan of Treatment Not on file documented as of this encounter Visit Diagnoses Diagnosis Follow-up examination, following unspecified surgery- Primary documented in this encounter Care Teams Novelties Sales Representative Relationship Specialty Start Date End Date Juan Hunt NP [address] [place] [phone] PCP - General NURSE PRACTITIONER 01/14/18 documented as of this encounter
--- OUTSIDE RECORDS SUMMARY | 2024-08-22 18:18 | XMS_ITS | Encounter Summary ---
Author Organization [facility] Address [address] [place] [address] Care Team Providers Care Playground Official Name Role Phone Juan Hunt DUTY ENGINEER Primary Care Provider Encounter Details Date Type Department Care Team (Late st Contact Info) Description 12/01/[address] [facility] Social History Tobacco Use Types Packs/Day Years Used Date Smoking Tobacco: Never Assessed Comments Unknown Sex and Gender Information Value Date Recorded Sex Assigned at Not on file Legal Sex Female 4:31 AM ORTHO/PROSTHETIC AIDE Gender Identity Not on file Sexual Orientation Not on file documented as of this encounter Plan of Treatment Not on file documented as of this encounter Visit Diagnoses Not on filedocumented in this encounter Care Teams Playground Official Relationship Specialty Start Date End Date Juan Hunt, DUTY ENGINEER [address] [place] [phone] PCP - General NURSE PRACTITIONER 01/14/18 documented as of this encounter
--- OUTSIDE RECORDS SUMMARY | 2024-08-22 18:18 | XMS_ITS | Clinical Summary ---
Author Organization [facility] Address [address] [place] [address] Phone Care Team Providers Care Radiologic Technologist Name Role Phone Juan Hunt NP Primary Care Provider Allergies Active Allergy Reactions Criticality Noted Date Comments Aspirin Rash Low 05/11/2016 Doxycycline Rash Low 05/11/2016 Penicillins Rash Low 05/11/2016 Medications OTHER Calcium with magnesium daily . Active topiramate (TOPAMAX) 100 mg tablet Take 100 mg by mouth daily. Active omeprazole (PriLOSEC) 20 mg Capsule, Delayed Release(E.C.) Take 20 mg by mouth daily. Active hyaluronate sodium (HYALURONIC ACID, SODIUM, ORAL) Take 100 mg by mouth daily. Active OTHERIndication s:Triamcymilone cream .1% Provider please include Medication name, dose, route and frequency . Active levothyroxine 175 mcg tablet Take 1 Tablet (175 mcg) by mouth every other day. 45 Tablet 3 9 Active levothyroxine 200 mcg tablet Take 1 Tablet (200 mcg) by mouth every other day. 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 Primary hypothyroidism 05/11/2016 Palpitation 05/11/2016 Family History Medical History Relation Name Comments Breast Cancer Maternal Aunt 1 Ovarian Cancer Maternal Aunt 2 Cancer Maternal Grandmother Diabetes Maternal Grandmother Other Maternal Grandmother Thyroid Disease Maternal Grandmother Hypertension Mother Colon Cancer Neg Hx Relation Name Status Comments Maternal Aunt 1 Maternal Aunt 2 Alive Maternal Grandmother Mother Social History Tobacco Use Types Packs/Day Years Used Date Smoking Tobacco: Never Smokeless Tobacco: Never Tobacco Cessation:Counseling Given: Yes Alcohol Use Standard Drinks/Week Comments No 0 (1 standard drink = 0.6 oz pur e alcohol) Comments No Sex and Gender Information Value Date Recorded Sex Assigned at Not on file Legal Sex Female 4:31 AM DISTRICT SUPERINTENDENT Gender Identity Not on file Sexual Orientation Not on file Last Filed Vital Signs Vital Sign Reading Time Taken Comments Blood Pressure 128/80 01/16/2019 2:36 PM DISTRICT SUPERINTENDENT Pulse 76 01/16/2019 1:11 PM DISTRICT SUPERINTENDENT Temperature - - Respiratory Rate - - Oxygen Saturation - - Inhaled Oxygen Concentration - - Weight 146.7 kg (323 lb 6.4 oz) 01/16/2019 2:36 PM DISTRICT SUPERINTENDENT Height 180.3 cm (5' 11 ) 01/16/2019 2:36 PM DISTRICT SUPERINTENDENT Body Mass Index 45.11 01/16/2019 2:36 PM DISTRICT SUPERINTENDENT Plan of Treatment Health Maintenance Due Date Last Done Comments DTAP/TDAP/TD VACCINES (1 - Tdap) 1989 HEPATITIS B VACCINES (1 of 3 - 19+ 3-dose series) 1989 COLORECTAL SCREENING 10/22/2015 Colorectal Cancer Screening 10/22/2015 FIT-DNA Q 3 years 10/22/2015 FIT/FOBT Q 1 year 10/22/2015 Flex Sig/CT Colonography Q 5 years 10/22/2015 BREAST CANCER SCREENING 08/29/2016 08/30/2015 ZOSTER VACCINE (1 of 2) 2020 PAP SMEAR 01/14/2021 01/14/2018, 08/24/2005 CERVICAL CANCER SCREENING 01/14/2023 HPV/Cotest (21-29) 01/14/2023 01/14/2018 HPV/Cotest (30-65) 01/14/2023 01/14/2018 INFLUENZA VACCINE (#1) 2024 0, 12/18/2018, 02/10/2018 Procedures Procedure Name Priority Date/Time Associated Diagnosis Comments CERV/VAG CYTO AGE BASED SCREEN PAP Routine 01/14/2018 4:06 PM DISTRICT SUPERINTENDENT Encounter for gynecological examination without abnormal finding MAMMO SCREEN BILAT W OR WO CAD Routine 08/30/2015 from Last 3 Months or Most Recently Relevant to Health Maintenance Results * CERV/VAG CYTO AGE BASED SCREEN PAP (01/14/2018 4:06 PM DISTRICT SUPERINTENDENT) COMMENT (PAP): SEE COMMENT 8 1:52 PM DISTRICT SUPERINTENDENT [facility] Comment: This order for age-based cervical cancer and STI screening follows ACOG guidelines(PB 168, 140, [id number]). See individual assays for performing site location. CLINICAL INFORMATION Routine exam 01/20/2018 1:52 PM DISTRICT SUPERINTENDENT [facility] LAST MENSTRUAL PERIOD INFORMATION NOT PROVIDED 01/20/2018 1:52 PM DISTRICT SUPERINTENDENT [facility] PREV PAP: INFORMATION NOT PROVIDED 01/20/2018 1:52 PM DISTRICT SUPERINTENDENT [facility] PREV BX: INFORMATION NOT PROVIDED 01/20/2018 1:52 PM DISTRICT SUPERINTENDENT [facility] SOURCE Endocervix 01/20/2018 1:52 PM DISTRICT SUPERINTENDENT [facility] ADEQUACY: SEE COMMENT 01/20/2018 1:52 PM DISTRICT SUPERINTENDENT [facility] Comment: Satisfactory for evaluation. Endocervical/transformation zone component present. Age and/or menstrual status not provided PAP INTERP Negative for intraepithelial lesion or malignancy. 01/20/2018 1:52 PM DISTRICT SUPERINTENDENT [facility] COMMENT This Pap test has been evaluated with computer assisted technology. 01/20/2018 1:52 PM DISTRICT SUPERINTENDENT [facility] MECHANICAL MAINTENANCE FOREMAN: SEE COMMENT 2017 1:52 PM DISTRICT SUPERINTENDENT [facility] Comment: MVB, CT(ASCP) CT screening location: [place] [address] [place] [address] EXPLANATORY NOTE SEE COMMENT 018 1:52 PM DISTRICT SUPERINTENDENT [facility] Comment: EXPLANATORY NOTE: The Pap is a [...] Not Detected Not Detected 01/20/2018 1:52 PM DISTRICT SUPERINTENDENT [facility] Comment: This test was performed using the APTIMA HPV Assay ([employer] This assay detects E6/E7 viral messenger RNA (mRNA) from 14 high-risk HPV types (16,18,31,33,35,39,45,51,52,56,58,59,66,68). The analytical performance characteristics of this assay have been determined by [employer]. The modifications have not been cleared or approved by the FDA. This assay has been validated pursuant to the CLIA regulations and is used for clinical purposes. Genital SWAB OF ENDOCERVIX / Unknown Collection / Unknown 01/14/2018 4:06 PM DISTRICT SUPERINTENDENT 01/17/2018 8:52 AM DISTRICT SUPERINTENDENT Narrative [facility] - 01/20/2018 1:52 PM DISTRICT SUPERINTENDENT Performing Organization Information: Site ID: [id number] [facility]: [facility] Address: [address] [place] [address] Director: Conner Quijano D.O., MPH Site ID: [place] [facility] Address: [address] [place] [address] Director: Jared Carrasco us Daphne Greene [facility] PATHOLOGY/CYTOLOGY ORDERABLES Final Result [facility] * MAMMO SCREEN BILAT W OR WO CAD (08/30/2015) Anatomical Region Laterality Modality Breast Bilateral Mammography us Abstract Spg Provider MAMMO ORDERABLES Final Res ult from Last 3 Months or Most Recently Relevant to Health Maintenance Insurance [facility] Care Teams Radiologic Technologist Relationship Specialty Start Date End Date Juan Hunt NP [address] [place] [phone] PCP - General NURSE PRACTITIONER 01/14/18
[2024-08-22 19:23] LABS: Hematocrit 42.6 % (36-47); Hemoglobin 13.20 g/dL (11.27-16.99); Mean Corpuscular HGB Conc 31.0 g/dL (30-55); Mean Corpuscular Hemoglobin 26.1 pg (27-33); Mean Corpuscular Volume 84.4 fl (85-98); Nucleated Red Blood Cells % 0 %; Platelet Count 309 10^3/cmm (157-399); Red Blood Count 5.05 10^6/uL (3.85-5.65); White Blood Count 8.18 10^3/uL (3.29-11.43)
[2024-08-22 19:33] VITALS: BP 162/98; PULSE 90; RESP 18; O2SAT 99
--- NOTE | 2024-08-22 19:36 | ED_ITS ---
HPI - Arrhythmia/Palpitations 2 General: Chief Complaint: Arrhythmia/Palpitations Stated Complaint: Heart Palpatations Time Seen by Provider: 08/22/24 19:13 History of Present Illness: 53-yo F with Hx of allergic asthma, morb id obesity, prediabetes, Jean- related hypothyroidism, goiter, frequent migraines, hidradenitis suppurativa, and prior large perianal cyst presents after sudden onset palpitations at 13:30 while seated at work. Episode associated with light-headedness, dizziness, nausea, shortness of breath, and brief (5?10 min) non-pleuritic chest discomfort; patient felt heart ?flip? in chest and head. 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 Symptoms were continuous until shortly after 15:00, now intermittent with prominent frontal headache. Denies diaphoresis noted by self but staff thought possible. No syncope, visual changes, cough, fever, recent illness, caffeine intake, tobacco, or alcohol. Reports 4 ? 30 oz water today. No recent thyroid dose change (levothyroxine 200 mcg daily ? ~1 yr); palpitations worsened last 7?10 days. Family reports no cardiac disease. Current episode reproduced while supine; sitting upright improves symptoms. Related Data Home Medications ?Medication ?Instructions ?Recorded ?Confirmed cetirizine 10 mg capsule (Zyrtec) 10 mg PO DAILY 04/1107/18/24 clindamycin phosphate 1 % topical 1 applic topical BID PRN rash 11/14/20 07/18/24 gel esomeprazole magnesium 20 mg 20 mg PO DAILY 09/19/21 0 07/18/24 capsule,delayed release (Nexium 24HR) Previous Rx's ?Medication ?Instructions ?Recorded albuterol sulfate 90 mcg/actuation 2 puff inhalation Q 6H PRN 06/30/23 aerosol inhaler (Ventolin HFA) shortness of breath or wheezing #8.5 grams triamcinolone acetonide 0.1 % 1 applic topical DAILY P RN itching 01/26/24 topical cream #454 grams clobetasol 0.05 % topical cream 1 applic topical DAILY PRN itching 02/12/24 #60 grams acyclovir 5 % topical ointment 1 applic topical 6XD 7 days #5 02/23/24 grams flash glucose scanning reader #1 ea 03/07/24 (FreeStyle Payal 2 [place]) flash glucose sensor (FreeStyle #2 kits 03/07/24 Payal 2 Sensor kit) budesonide-formoterol HFA 160 2 puff inhalation Q12H # 10.2 grams 07/18/24 mcg-4.5 mcg/actuation aerosol inhaler (Symbicort) estradiol 0.5 mg tablet 0.5 mg PO DAILY #90 tabs 12/02 levothyroxine 200 mcg tablet See Rx Instructions PO .C OMPLEX 07/18/24 #90 tabs metformin 500 mg tablet,extended 500 mg PO DAILY #90 t abs 07/18/24 release 24 hr semaglutide 1 mg/dose (4 mg/3 mL) 1 mg (0.75 mL) SUBCU T .weekly #3 mL 07/22/24 subcutaneous pen injector (Ozempic) Allergies Allergy/AdvReac Type Severity Reaction Status Date / Time aspirin Allergy bloody nose Verified 07/18/24 11:48 Penicillins Allergy rash Verified 07/18/24 11:48 doxycycline AdvReac Mild rash Verified 07/18/24 11:48 PFSH ED 2 PFSH: Medical History (Updated 08/22/24 @ 21:18 by Yassine Cheng MD) Allergic asthma Pre-diabetes Morbid obesity with BMI of 45.0-49.9, adult Left arm numbness Left upper arm pain Myalgia Goiter 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 Vitale on 01/07/21 History of incision and drainage H/O knee surgery History of cholecystectomy History of D&C History of surgical removal of ganglion cyst History of endometrial ablation Family History Mother Anesthesia complication Clotting disorder Hyperlipidemia Hypertension Pulmonary embolism Grandmother Stroke maternal Diabetes maternal Family/Other Clotting disorder maternal aunt and uncle Diabetes maternal aunt and uncle Thyroid disease paternal side of family Breast cancer, Onset Age: 56 maternal aunt Ovarian cancer maternal aunt, age onset late 40's Sister Diabetes Thyroid disease Denies family history of Colon cancer Heart disease Bleeding disorder Uterine cancer Social History Smoking and tobacco/nicotine status: never used tobacco/nicotine Alcohol intake: unknown Substance/Drug Use: never Adopted: No Caregiver/support person: No Lives independently: Yes Household members: spouse Housing: House Marital status: Number of children: 1 service: No Current occupational status: employed 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 Pets and animals: Yes Do you think of yourself as: Straight/Heterosexual Current gender identity: Female Physical Exam 2 Const: COMMON NORMALS: no acute distress, patient oriented x3 and alert HENMT: COMMON NORMALS: normocephalic and atraumatic HEAD & SCALP: n ormocephalic and atraumatic Eye: COMMON NORMALS: Equal, round and reactive pupils present, EOMs intact bilaterally and no scleral icterus PUPIL: Yes Equal, round and reactive pupils present Resp: COMMON NORMALS: normal respiratory effort and No retractions Cardio: COMMON NORMALS: regular rate, regular rhythm and No murmurs present (Cardio) RATE: regular rate RHYTHM: regular rhythm GI: COMMON NORMALS: Normal to inspection, nondistended, normoactive bowel sounds present, Soft to palpation and non-tender PALPATION: Yes Soft to palpation Neuro: COMMON NORMALS: patient oriented x3 SENSORIUM/ORIENTATION: Yes alert Skin: COMMON NORMALS: no rashes or lesions noted GENERAL SKIN EXAM: no rashes or lesions noted Course 2 Vital Signs: Vital signs: Vital Signs Temperature 98.3 F 08/22/24 18:18 Pulse Rate 83 08/22/24 21:52 Respiratory Rate 16 08/22/24 21:52 Blood Pressure 141/81 08/22/24 21:52 Pulse Oximetry 97 08/22/24 21:52 Oxygen Delivery Me thod Room Air 08/22/24 21:00 MDM - Arrhythmia/Palpitations Medical Decision Making While in the room with the patient, she started to have the same symptoms that she felt earlier in the day of lightheadedness, shortness of breath, and palpations. Despite this, she had normal sinus rhythm with rate in the 80s. EKG is reassuring chest x-ray shows nothing acute. Labs are unremarkable with negative troponin. Headache is improved with IV fluids, Benadryl, Compazine. I am uncertain of the etiology of her palpitations but do not suspect ACS, PE, pneumonia, or any other emergent process at this time requiring further workup. She be discharged home with recommendation to consider getting a stress test in the next few weeks. She notes that she is always looking back in the emergency department if needed before then. Lab Data 08/22/24 19:10 08/22/24 19:10 Laboratory Results WBC 8.18 10^3/uL (3.29-11.43) 08/22/24 19:10 RBC 5.05 10^6/uL (3.85-5.65) 08/22/24 19:10 Hgb 13.20 g/dL (11.27-16.99) 08/22/24 19:10 Hct 42.6 % (36-47) 08/22/24 19:10 MCV 84.4 fl (85-98) L 08/22/24 19:10 MCH 26.1 pg (27-33) L 08/22/24 19:10 MCHC 31.0 g/dL (30-55) 08/22/24 19:10 RDW 15.4 % (12.1-15.1) H 08/22/24 19:10 Plt Count 309 10^3/cmm (157-399) 08/22/24 19:10 MPV 10.5 fL (7.4-10.4) H 08/22/24 19:10 Neut % (Auto) 61.2 % 08/22/24 19:10 Lymph % (Auto) 27.6 % 08/22/24 19:10 [place] % (Auto) 8.1 % 08/22/24 19:10 Eos % (Auto) 2.3 % 08/22/24 19:10 Baso % (Auto) 0.6 % 08/22/24 19:10 Neut # (Auto) 5.00 10^3/uL (1.8-7.7) 08/22/24 19:10 Lymph # (Auto) 2.3 10^3/uL (0.8-4.8) 08/22/24 19:10 [place] # (Auto) 0.7 10^3/uL (0.2-0.9) 08/22/24 19:10 Eos # (Auto) 0.2 10^3/uL (0.0-0.8) 08/22/24 19:10 Baso # (Auto) 0.1 10^3/uL (0.0-0.1) 08/22/24 19:10 Nucleated RBC % (auto) 0 % 08/22/24 19:10 Nucleated RBCs # 0.0 /100WBC 08/22/24 19:10 Sodium 139 mmol/L (136-145) 08/22/24 19:10 Potassium 4.3 mmol/L (3.5-5.1) 08/22/24 19:10 Chloride 101 mmol/L (98-107) 08/22/24 19:10 Carbon Dioxide 25 mmol/L (22-29) 08/22/24 19:10 Anion Gap 17.3 (5-19) 08/22/24 19:10 BUN 12 mg/dL (6-20) 08/22/24 19:10 Creatinine 0.7 mg/dL (0.5-0.9) 08/22/24 19:10 GFR Calculation 87.5 mL/min (90-130) L 08/22/24 19:10 Glucose 92 mg/dL (65-115) 08/22/24 19:10 Calculated Osmolality 287 mOsm/kg (285-295) 08/22/24 19:10 Calcium 9.2 mg/dL (8.5-10.5) 08/22/24 19:10 Total Bilirubin 0.5 mg/dL (0.15-1.2) 08/22/24 19:10 AST 42 U/L (0-32) H 08/22/24 19:10 ALT 60 U/L (0-33) H 08/22/24 19:10 Alkaline Phosphatase 92 U/L (35-105) 08/22/24 19:10 Troponin T Baseline < 6 ng/L (0-10) 08/22/24 19:10 Total Protein 7.9 g/dL (6.6-8.7) 08/22/24 19:10 Albumin 4.0 g/dL (3.5-5.2) 08/22/24 19:10 Globulin 3.9 g/dL (1.3-4.6) 08/22/24 19:10 TSH 0.70 uIU/mL (0.27-4.20) 08/22/24 19:10 All radiology interpretation(s) finalized by discharge EKG Data EKG 1: Interpretation: Time?1816?sinus rhythm with incomplete right bundle branch block, rate of 96, less than [address] segment elevation in aVR with less than 1 mm of subtle depression in leads I, 2, aVF, V4, V5, V6. No T wave versions. QTc = 411. Discharge Plan Discharge Patient Disposition: Home Clinical Impression: Palpitations, Headache Condition: Stable Prescriptions: No Action Zyrtec 10 mg capsule 10 mg PO DAILY clindamycin phosphate 1 % gel 1 applic topical BID PRN (Reason: rash) albuterol sulfate [Ventolin HFA] 90 mcg/actuation HFA aerosol inhaler 2 puff inhalation Q6H PRN (Reason: shortness of breath or wheezing) Qty: 8.5 2RF triamcinolone acetonide 0.1 % cream 1 applic topical DAILY PRN (Reason: itching) Qty: 454 0RF clobetasol 0.05 % cream 1 applic topical DAILY PRN (Reason: itching) Qty: 60 2RF Rx Instructions: apply 2-3 times weekly esomeprazole magnesium [Nexium 24HR] 20 mg capsule,delayed release(DR/EC) 20 mg PO DAILY budesonide-formoterol [Symbicort] 160-4.5 mcg/actuation HFA aerosol inhaler 2 puff inhalation Q12H Qty: 10.2 2RF estradiol 0.5 mg tablet 0.5 mg PO DAILY Qty: 90 1RF levothyroxine 200 mcg tablet See Rx Instructions PO .COMPLEX Qty: 90 1RF Rx Instructions: 200mcg 6 day 100mcg 1 day orally; metformin 500 mg tablet extended release 24 hr 500 mg PO DAILY Qty: 90 1RF Ozempic 1 mg/dose (4 mg/3 mL) pen injector 1 mg SUBCUT .weekly Qty: 3 2RF acyclovir 5 % ointment 1 applic topical 6XD 7 Days Qty: 5 0RF (DME) FreeStyle Payal 2 Sensor Kit See Rx Instructions .ROUTE .COMPLEX Qty: 2 11RF Dose Instruction: USE DIRECTED Rx Instructions: every 14 day (DME) FreeStyle Payal 2 [place] Misc See Rx Instructions .ROUTE .MEDSUPPLY Qty: 1 0RF Rx Instructions: As directed Discharge Orders: Discharge ED (Routine); Ordered 08/22/24 Ordered By: Yassine Cheng Referrals: Juan Hunt, AIYANA [Primary Care Provider, [facility]] Discharge Diet: Usual diet Discharge Activity: Increase activity as tolerated Patient Instructions: Heart Palpitations (ED), Patient Portal & [place] Instructions Activity Restrictions/Additional Instructions: please talk with your primary care physician about getting a stress test as your EKG did show very mild strain when heart rate was 96 possibly indicative of partially occlusive coronary artery disease. Your troponin is normal and otherwise workup is noncontributory Print Language: Frisian Coding Level of Care Code ED [employer] Engineering Manager for Arie Turner
[2024-08-22 19:49] LABS: Alanine Aminotransferase 60 U/L (0-33); Albumin Level 4.0 g/dL (3.5-5.2); Alkaline Phosphatase 92 U/L (35-105); Anion Gap 17.3 (5-19); Aspartate Amino Transferase 42 U/L (0-32); Blood Urea Nitrogen 12 mg/dL (6-20); Calcium 9.2 mg/dL (8.5-10.5); Carbon Dioxide 25 mmol/L (22-29); Chloride 101 mmol/L (98-107); Creatinine Clr Calc Pharmacy 146.8248; Globulin 3.9 g/dL (1.3-4.6); Glucose 92 mg/dL (65-115); Osmolality Calculated 287 mOsm/kg (285-295); Potassium 4.3 mmol/L (3.5-5.1); Sodium 139 mmol/L (136-145); Thyroid Stimulating Hormone 0.70 uIU/mL (0.27-4.20); Total Protein 7.9 g/dL (6.6-8.7)
[2024-08-22 20:00] VITALS: BP 149/90; PULSE 81; RESP 16; O2SAT 99
[2024-08-22 20:03] LABS: Troponin(5th) Baseline < 6 ng/L (0-10)
[2024-08-22] MEDS: diphenhydrAMINE 50 mg/mL SDV 1mL 25 MG IVP (20:18)
[2024-08-22 20:52] VITALS: BP 136/78; PULSE 80; RESP 16; O2SAT 96
[2024-08-22 21:00] VITALS: BP 109/75; PULSE 78; RESP 18; O2SAT 94
[2024-08-22 21:52] VITALS: BP 141/81; PULSE 83; RESP 16; O2SAT 97
== END 2024-08-22 21:51 | disposition home or self-care (01) ==
PROVIDERS: Emergency Medicine; Emergency Provider Student in an Organized Health Care Education/Training Program; PCP Nurse Practitioner
DX: R00.2 Palpitations (principal); R51.9 Headache, unspecified; Z79.84 Long term (current) use of oral hypoglycemic drugs
CPT/HCPCS: 36415; 80053; 84443; 84484; 85025; 93005; 96374; 96375; 99284; J0780; J1200; J7030

== ENCOUNTER 2024-10-04 09:33 | Outpatient (CLI) | payer OTHER, SELFPAY ==
--- NOTE | 2024-10-04 10:00 | USCV_ITS ---
Tory Glenda Age: 53 Gender: F : 1970 Exam Date: 10/04/2024 10:05 Ordering Phys: Ayo Rodgers MD ([email or web address]) Technologist: Exam Location: [facility] – [place] Indication: palp BP: 120 / 90 HR: 83 Rhythm: Sinus Technical Quality: Adequate MEASUREMENTS (Male / Female) Normal Values 2D ECHO LV Diastolic Diameter PLAX 4.2 cm 4.2 - 5.9 / 3.9 - 5.3 cm IVS Diastolic Thickness 1.5 cm 0.6 - 1.0 / 0.6 - 0.9 cm IVS Systolic Thickness 1.9 cm LVPW Diastolic Thickness 1.4 cm 0.6 - 1.0 / 0.6 - 0.9 cm LVPW Systolic Thickness 1.6 cm LVOT Diameter 2.1 cm LV Ejection Fraction 2D Teich 68.9 % LV Ejection Fraction MOD 4C 60.2 % LV Ejection Fraction MOD 2C 62.8 % LV Ejection Fraction 2C AL 62.6 % LA Diameter 3.9 cm RA Systolic Volume 4C AL 40.3 ml RA Systolic Volume 4C MOD 37.3 ml Aorta at Sinotubular Diameter 3.2 cm M-MODE LA Ao Ratio MM 1.4 AV Cusp Separation MM 2.2 cm DOPPLER AV Peak Velocity 109.0 cm/s LVOT Peak Velocity 94.0 cm/s AV Area Cont Eq vti 3.8 cm squared AV Area Cont Eq pk 3.0 cm squared MV Peak Velocity 84.0 cm/s MV Area PHT 4.9 cm squared Mitral E to A Ratio 0.6 TR Peak Velocity 150.0 cm/s TR Peak Gradient 9.0 mmHg PV Peak Velocity 101.0 cm/s FINDINGS Left Ventricle Normal left ventricular size, systolic function and wall thickness, with no regional wall motion abnormalities. EF is 60- 65%. Grade 1 diastolic dysfunction Right Ventricle Normal right ventricular size and systolic function. Right Atrium Normal right atrial size. Left Atrium Normal left atrial size. Mitral Valve Structurally normal mitral valve. Mild mitral valve regurgitation. Aortic Valve Structurally normal aortic valve. No aortic valve stenosis. Tricuspid Valve Insufficient TR jet to calculate RVSP Pulmonic Valve Not well visualized Pericardium Normal Aorta Normal in size IVC Not well visualized CONCLUSIONS LV systolic function is normal with EF of 60-65% Grade 1 diastolic dysfunction Mild mitral regurgitation No comparison studies are available. Kamaljit Askew MD (Electronically Signed) Final Date: 06 October 2024 14:43 S
== END 2024-10-04 09:34 | disposition home or self-care (01) ==
LOC: RAD 09:34
PROVIDERS: PCP Nurse Practitioner; Visit Provider Internal Medicine Cardiovascular Disease
DX: R00.2 Palpitations (principal); R93.1 Abnormal findings on diagnostic imaging of heart and coronary circulation; I34.0 Nonrheumatic mitral (valve) insufficiency
CPT/HCPCS: 93306

== ENCOUNTER 2024-10-23 11:29 | Outpatient (CLI) | payer OTHER, SELFPAY ==
--- NOTE | 2024-10-23 | ECG_ITS ---
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 Baseline heart rate was 78 beats per minute. Baseline blood pressure was 140/87 millimeters of mercury. Target heart rate was 166 beats per minute. Maximum heart rate achieved was 161 which was 96% of the target heart rate. Maximum blood pressure was 109/94 millimeters of mercury. Total exercise time was 6 minutes 8 seconds maximum METs achieved was 7.0, maximum VO2 was 24.5. The reason for ending the test was maximum effort achieved. The patient complained of shortness of breath during the stress test, which then resolved at the end of the test. ELECTROCARDIOGRAM: BASELINE: Showed sinus rhythm, normal axis, no significant ST-T changes at the baseline noted. EXERCISE: At the peak exercise level, [] No significant ST-T changes suggestive of ischemia noted. RECOVERY: During the recovery period, heart rate dropped appropriately. No significant ST-T changes in the recovery suggestive of ischemia noted. [] CONCLUSION: 1. Exercise capacity fair 2. Heart rate response was appropriate 3. Blood pressure response was hypertensive 4. Symptoms not suggestive of ischemia. 5. Electrocardiogram portion of the stress test was not suggestive of ischemia. 6. Nuclear scan will be documented separately. Electronically Signed On 11-19-2024 20:41:29 CDT by AYO IYER [email or web address]
[2024-10-23 11:34] VITALS: BMI 45.1
--- NOTE | 2024-10-23 11:35 | USCV_ITS ---
Glenda Spears Age: 54 Gender: F : 1970 Exam Date: 10/23/2024 11:51 Ordering Phys: Ayo Rodgers MD ([email or web address]) Technologist: [place] [facility] [place]: CP, SOB Rhythm: Sinus Patient History: DM, elevated BP readings Cardiac Medications: Medications in past 24 hours: Contrast: Stress Results Protocol: Amador Total dose(mL): Exercise Duration (min:sec): 06:08 METS: 7.0 Resting HR: 74 Resting BP: 140 / 87 Peak HR: 161 Peak BP: 189 / 94 Max Predicted HR: 166 97 % Max Predicted HR Target HR: 141 Double Product: [id number] Stress Summary: The patient's target heart rate was achieved The hemodynamic response to exercise was normal BP Response: Normal Reason for Termination: Maximal effort/unable to continue, Test terminated after reaching target heart rate (85% max predicted) Cardiac Symptoms: None ECG Analysis Resting ECG: Stress ECG: Arrhythmia: MEASUREMENTS (Male/Female) Normal Values FINDINGS Baseline echocardiogram: Normal left ventricular ejection fraction no wall motion abnormality estimated ejection fraction 55% At peak exercise level: Good augmentation of the cavity no new wall motion abnormality noted left ventricle ejection fraction remains normal Recovery phase: No new wall motion abnormalities noted CONCLUSIONS Normal echocardiographic portion of the stress test, not suggestive of ischemia. EKG portion of the stress test will be documented separately. Ayo Rodgers MD (Electronically Signed) Final Date: 02 November 2024 11:36 S
[2024-10-23 12:27] VITALS: BP 132/81; PULSE 98
== END 2024-10-23 11:30 | disposition home or self-care (01) ==
PROVIDERS: PCP Nurse Practitioner; Visit Provider Internal Medicine Cardiovascular Disease
DX: R07.9 Chest pain, unspecified (principal); R06.02 Shortness of breath; R93.1 Abnormal findings on diagnostic imaging of heart and coronary circulation
CPT/HCPCS: 93017; 93350

== ENCOUNTER 2024-11-01 20:07 | Outpatient (CLI) | payer OTHER, SELFPAY | END 2024-11-01 20:08 | disposition home or self-care (01) | LOC: SLEEP 20:08 | PROVIDERS: PCP Nurse Practitioner; Referring Provider Nurse Practitioner; Visit Provider Internal Medicine Pulmonary Disease | DX: G47.33 Obstructive sleep apnea (adult) (pediatric) (principal); G47.36 Sleep related hypoventilation in conditions classified elsewhere | CPT/HCPCS: 95810 ==

== ENCOUNTER 2024-12-26 19:58 | Outpatient (CLI) | payer OTHER, SELFPAY | END 2024-12-26 19:59 | disposition home or self-care (01) | LOC: SLEEP 19:59 | PROVIDERS: PCP Nurse Practitioner; Referring Provider Nurse Practitioner; Visit Provider Internal Medicine Pulmonary Disease | DX: G47.33 Obstructive sleep apnea (adult) (pediatric) (principal); G47.61 Periodic limb movement disorder | CPT/HCPCS: 95811 ==

== ENCOUNTER → 2025-01-10 11:59 | Outpatient (BNVA) | payer OTHER, SELFPAY | PROVIDERS: PCP Nurse Practitioner; Visit Provider Nurse Practitioner | DX: E11.9 Type 2 diabetes mellitus without complications (principal); M25.50 Pain in unspecified joint | CPT/HCPCS: 80053; 80061; 82043; 83036; 84439; 84443; 84481; 85651; 86140; 86431 ==